=== PATIENT | female | born 1975 | race Caucasian/White ===

== ENCOUNTER 2019-12-02 16:12 | Emergency (ER) | payer OTHER ==
[2019-12-02 16:33] VITALS: BP 157/92; PULSE 82
--- NOTE | 2019-12-02 17:45 | CT ---
Head CT Technique: Multiple axial sections through the brain were obtained. Intravenous contrast was not utilized. Comparison: No prior intracranial imaging is available. Findings: Ventricles along with basal cisterns and sulci over the convexities appear within normal limits for the patient's age. No abnormal parenchymal densities are seen. No evidence of intracranial hemorrhage. No midline shift or mass-effect is seen. Mucosal thickening is seen with left maxillary sinus with possible fluid. Mastoid sinuses that are seen appear clear. No acute calvarial abnormality is appreciated. Impression: 1. Fluid and mucosal thickening within the left maxillary sinus. Difficult to exclude sinusitis although given the history of trauma the fluid may relate to retained secretions. Please correlate with the patient's symptoms. 2. No acute intracranial abnormality is seen. Diagnostic code #3 This report was dictated in [place] Standard Time
[2019-12-02] MEDS ORDERED: Ibuprofen 600 MG Tab PO ONE (18:10)
[2019-12-02] MEDS ORDERED: diphenhydrAMINE 25 MG Cap PO ONE (18:12)
--- NOTE | 2019-12-02 18:13 | EDM.PDOC ---
ED HPI GENERAL MEDICAL PROBLEM - General Chief Complaint: Head Injury Stated Complaint: POSS CONCUSSION Time Seen by Provider: 12/02/19 16:45 Source of Information: Reports: Patient History Limitations: Reports: No Limitations - History of Present Illness INITIAL COMMENTS - FREE TEXT/NARRATIVE: Patient is a 44-year-old female who presents to the emergency department with complaints of dizziness and jaw pain after slipping on the ice and hitting her head around 945 this morning. Patient denies a loss of consciousness. She has no pain in her neck. The pain in her jaw is worse with movement and she feels like it is difficult to completely close her mouth. States she was nauseous for a few hours after the initial incident, however she denies nausea at this time. She states that she does have a history of vertigo in the past with "crystals in her ears ". She describes the dizziness as a sensation that the room is spinning. If she is sitting upright it is okay, however, reclining back even a small amount causes dizziness. Denies a headache. She is not on any blood thinners. Jaw Pain Score (Numeric/FACES): 4 - Related Data Allergies Allergy/AdvReac Type Severity Reaction Status Date / Time acetaminophen [From Tylenol] Allergy Nausea Verified 12/02/19 16:33 banana Allergy Diarrhea Verified 12/02/19 16:33 kiwi Allergy Diarrhea Verified 12/02/19 16:33 Home Meds: Home Meds . 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 ED EXAM, HEAD INJURY - Physical Exam Exam: See Below Exam Limited By: No Limitations General Appearance: Alert, WD/WN, No Apparent Distress Head: Scalp Swelling (Right occipital), Scalp Tenderness (Right occipital). 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 II-XII nml As Tested, No Motor/Sensory Deficits, Alert, Normal Mood/Affect, Oriented x 3 Skin: Normal Color, Warm/Dry - Hillary Coma Score Best Eye Response (Hillary): (4) Open Spontaneously Best Verbal Response (Hillary): (5) Oriented Best Motor Response ([place]): (6) Obeys Commands Course - Vital Signs Last Recorded V/S: Last Vital Signs Temp 97.1 F 12/02/19 16:29 Pulse 82 12/02/19 16:29 Resp 14 12/02/19 16:29 BP 157/92 H 12/02/19 16:29 Pulse Ox 100 12/02/19 16:29 - Orders/Labs/Meds Meds: Medications Discontinued Medications Generic Name Dose Route Start Last Admin Trade Name Freq PRN Reason Stop Dose Admin Diphenhydramine HCl 25 mg 12/02/19 18:12 Benadryl PO 12/02/19 18:13 ONETIME ONE Ibuprofen 600 mg 12/02/19 18:10 Motrin PO 12/02/19 18:11 ONETIME ONE Meclizine HCl 25 mg 12/02/19 18:11 Antivert PO 12/02/19 18:12 ONETIME ONE - Re-Assessments/Exams Free Text/Narrative Re-Assessment/Exam: 12/02/19 18:19 CT of the head was completed and shows no evidence of bleeding or acute intracranial cranial abnormalities. Patient does have some mild soft tissue swelling in the right occipital region of her head. Neuro exam is normal. She does complain of some pain in her jaw, however her jaw is not tender to palpation. Pain seems to be worse when she tries to close her jaw. She does not have a headache. She does have a history of vertigo with what sounds like otolith dysfunction. Since she hit her head she has been experiencing vertigo symptoms. Symptoms are worse when reclining or lying flat. She says she states she feels like the room is tilting. Discussed the options for vertigo treatment at this time. She states she is very sensitive to medications. I will give her ibuprofen for the jaw pain, and meclizine and Benadryl for the vertigo symptoms. I did discuss that she should call tomorrow morning and try to get in with Dr. Beyer, automated cutting machine operator as I feel the impact of hitting her head may have dislodged the otoliths resulting in the vertigo symptoms. Departure - Departure Time of Disposition: 18:45 Disposition: Home, Self-Care 01 Condition: Fair Clinical Impression: Concussion injury of brain, Vertigo - Discharge Information *PRESCRIPTION DRUG MONITORING PROGRAM REVIEWED*: No *COPY OF PRESCRIPTION DRUG MONITORING REPORT IN PATIENT LUANNE: No Instructions: Head Injury, Adult, [id number], Vertigo, [id number] Referrals: Joanne Al NP [Primary Care Provider] - Ned Beyer MD [Ordering Only Provider] - Forms: ED Department Discharge Additional Instructions: You were seen in the emergency department this evening after slipping and hitting your head on the ice earlier in the day today. A CT was done on your head and was normal. It is likely that you are suffering from a concussion based on your symptoms. Treatment for concussion is brain rest. Avoid bright lights and and screens such as TVs, cell phones, and computer screens. Further education regarding concussions is attached to this discharge packet. With regard to your vertigo, it is a definite possibility that when you fell and hit your head on the ice you may have dislodged one of the the otoliths in your ear resulting in your vertigo symptoms. The symptoms will sometimes resolve on their own, however I do recommend that you call in the morning and schedule an appointment with automated cutting machine operator, Dr. Beyer, to have testing done to determine if it is your inner ear that is causing the vertigo. He may also be able to reset the otoliths to reduce your symptoms. In the meantime, you may use [id number] ibuprofen 600 mg every 6 hours as needed for pain and discomfort. Meclizine 25 to 50 mg every 6 hours and Benadryl 25 to 50 mg every 4 hours may be used to treat the symptoms of vertigo. These medications may also be purchased [id number]. As always, if you should experience any new or worsening symptoms, please do not hesitate to return to the emergency department to be reevaluated. You may also follow-up with your primary care provider in the clinic as needed. Sepsis Event Note - Evaluation Sepsis Screening Result: No Definite Risk - Focused Exam Vital Signs: Vital Signs Temp Pulse Resp BP Pulse Ox 12/02/19 16:29 97.1 F 82 14 157/92 H 100 Date Exam was Performed: 12/02/19 Time Exam was Performed: 18:45
== END 2019-12-02 19:07 | disposition home or self-care (01) ==
LOC: JD.ED 16:12
DX: S06.0X0A Concussion without loss of consciousness, initial encounter (principal); R42 Dizziness and giddiness; Z88.6 Allergy status to analgesic agent; Z91.018 Allergy to other foods; W00.0XXA Fall on same level due to ice and snow, initial encounter
CPT/HCPCS: 70450; 99284; A9270; 99283